=== PATIENT | female | born 1990 | race Caucasian/White ===

== ENCOUNTER → 2019-06-22 | Outpatient (CLI) | payer OTHER ==
--- NOTE | 2019-06-22 14:00 | Diagnostic Imaging Report ---
INDICATION: survey. TECHNIQUE: Multiple real-time grayscale images were obtained over the gravid uterus. COMPARISON: None FINDINGS: There is a single live fetus in a cephalic presentation. heart rate was recorded at 149 bpm. Placenta is anterior. Amniotic fluid volume is normal. kidneys, bladder and stomach are unremarkable. brain is unremarkable. There is a four-chamber heart. There is a three-vessel cord with normal insertion. spine is unremarkable. Cervical length is 3.2 cm. Biometrical measurements are as follows: Biparietal 6.62 cm, age 26 weeks 5 days. Head circumference 25.30 cm, age 27 weeks 4 days. Abdominal circumference 22.24 cm, age 26 weeks 5 days. Femur length 4.92 cm, age 26 weeks 4 days. Sonographic estimate age: 27 weeks 0 days. Sonographic estimated date of delivery: 09/21/2019. Estimated Weight: 973 gm (+/- 142 gm). LMP percentile: 38%. heart rate: 149 beats per minute. number: 1 of 1. IMPRESSION: Single live IUP 27 weeks 0 days gestational age. The estimated date of confinement sonographically is 09/21/2019. Dictated by: Dictated on workstation # [id number]
== END ==
LOC: RAD 10:01
PROVIDERS: ATTEND Obstetrics & Gynecology
DX: Z36.9 Encounter for antenatal screening, unspecified (principal); Z3A.27 27 weeks gestation of pregnancy
CPT/HCPCS: 76805

== ENCOUNTER 2019-09-18 18:03 | Inpatient (IN) | payer OTHER ==
[2019-09-18] VITALS (21 sets, daily range): BP systolic 110–129; BP diastolic 63–84
[~2019-09-18] VITALS: Ht 157.5 cm; Wt 72.8 kg
--- NOTE | 2019-09-18 18:10 | NUR ---
VALENTINE CASSIDY presented to unit via ambulatory from ED, accompanied by significant other , with c/o LEAKING FLUID. VALENTINE CASSIDY weighed, gowned, voided, and to bed. EFHM and TOCO applied, VS taken. VALENTINE CASSIDY oriented to bed controls, call light, TV, heat, and A/C controls.
--- NOTE | 2019-09-18 18:25 | NUR ---
Placed on monitor - states has been leaking mucous and clear fluid since 1700. Denies contractions. No initiate fluid seen with visual exam and coughing. Amnio test negative. Continued to observe and saw fluid expelled with cough from vaginal area. 1.5cms, 80% -2. 1851 Dr Pardo notified of admission - exam and gross leaking of fluid. Irregular and mild contractions - pt was not aware of them. Will admit for augmentation of labor.
[2019-09-18 19:12] LABS: BASOPHILS % (AUTO) 0 % (0-10); EOSINOPHILS % (AUTO) 0 % (0-10); HEMATOCRIT 34 % (35-52); HEMOGLOBIN 11.7 G/DL (11.5-16.0); LYMPHOCYTES # (AUTO) 2.3 X 10^3 (1.0-4.0); LYMPHOCYTES % (AUTO) 22 % (12-44); MEAN CORPUSCULAR HEMOGLOBIN 30 PG (25-34); MEAN CORPUSCULAR HGB CONC 34 G/DL (32-36); MEAN CORPUSCULAR VOLUME 86 FL (80-99); MEAN PLATELET VOLUME 10.1 FL (7.4-10.4); MONOCYTES # (AUTO) 0.7 X 10^3 (0.0-1.0); MONOCYTES % (AUTO) 6 % (0-12); NEUTROPHILS # (AUTO) 7.6 X 10^3 (1.8-7.8); NEUTROPHILS % (AUTO) 72 % (42-75); PLATELET COUNT 234 10^3/uL (130-400); RED CELL DISTRIBUTION WIDTH 12.6 % (10.0-14.5); WHITE BLOOD COUNT 10.6 10^3/uL (4.3-11.0)
[2019-09-18] MEDS ORDERED: D5 LR IV SOLUTION 1,000 ML IV ONE (19:12)
[2019-09-18] MEDS ORDERED: OXYTOCIN PRE-MIX DRIP 500 ML IV SCH (19:13)
--- NOTE | 2019-09-18 19:41 | History & Physical-OB ---
MARSHALL HUNT,MED STUDENT 09/18/19 1940: OB - Chief Complaint & HPI Date/Time Date of Admission: Date of Admission: Date seen by a Provider: Sep 18, 2019 Time Seen by a Provider: 19:22 Chief Complaint/History OB-Reason for Admission/Chief: Onset of Labor Hx : 1 Hx Para: 0 Expected Date of Delivery: Sep 23, 2019 Gestational Age in Weeks: 39 Gestational Age in Days: 2 Admission Nurse Assessment Rev: Yes Allergies and Home Medications Allergies Coded Allergies: No Known Drug Allergies (Unverified , 09/18/19) Patient Home Medication List Home Medication List Reviewed: Yes OB - History Hx of Present Care: Yes Ultrasounds: Normal mid trimester US Obstetrical Complications: None Medical Complications: None Patient Past Medical History N/A Immunizations Rubella: immune RPR/VDRL: Negative GBS Status: Negative OB - Admission Exam Physical Exam HEENT: NCAT Heart: Rhythm Normal Lungs: Clear Abdomen: Gravid Extremities: Normal Reflexes: Normal Heart Rate: 140's Accelerations: Accelerations Present Decelerations: No Decelerations Short Term Variability: Present Prison Variability: Average (6-25) Labs Laboratory Tests Test 09/18/19 18:55 Range/Units White Blood Count 10.6 4.3-11.0 10^3/uL Red Blood Count 3.95 L 4.35-5.85 10^6/uL Hemoglobin 11.7 11.5-16.0 G/DL Hematocrit 34 L 35-52 % Mean Corpuscular Volume 86 80-99 FL Mean Corpuscular Hemoglobin 30 25-34 PG Mean Corpuscular Hemoglobin Concent 34 32-36 G/DL Red Cell Distribution Width 12.6 10.0-14.5 % Platelet Count 234 130-400 10^3/uL Mean Platelet Volume 10.1 7.4-10.4 FL Neutrophils (%) (Auto) 72 42-75 % Lymphocytes (%) (Auto) 22 12-44 % Monocytes (%) (Auto) 6 0-12 % Eosinophils (%) (Auto) 0 0-10 % Basophils (%) (Auto) 0 0-10 % Neutrophils # (Auto) 7.6 1.8-7.8 X 10^3 Lymphocytes # (Auto) 2.3 1.0-4.0 X 10^3 Monocytes # (Auto) 0.7 0.0-1.0 X 10^3 Eosinophils # (Auto) 0.0 0.0-0.3 10^3/uL Basophils # (Auto) 0.0 0.0-0.1 10^3/uL OB - Assessment/Plan/Diagnosis Assessment Assessment: active labor Admission Dx 29 yo at 39 weeks 2 days gestation Active Labor Admission Status: Inpatient Order (span 2 midnights) Plan Plan: Expectant Management SADAF GLASGOW DO 09/18/192127: Allergies and Home Medications Allergies Coded Allergies: No Known Drug Allergies (Unverified , 09/18/19) OB - Assessment/Plan/Diagnosis Assessment Assessment: rupture of membranes Admission Dx 29 yo @ 38 weeks SROM Admission Status: Inpatient Order (span 2 midnights) Reason for Inpatient Admission: 38 week SROM Plan Plan: Other (Pitocin augmentation started due to dysfunctional contraction pattern at admission.) MARSHALL HUNT,MED STUDENT Sep 18, 2019 19:40 SADAF GLASGOW DO Sep 18, 2019 21:28
[2019-09-18] MEDS: D5 LR IV SOLUTION 1,000 ML IV SCH (19:53)
--- NOTE | 2019-09-18 21:27 | NUR ---
Dr Pardo called. Update given. New orders for epidural when pt desires. Will continue to monitor.
[2019-09-18] MEDS ORDERED: PREN1TAB19 PO (21:39)
--- OUTSIDE RECORDS SUMMARY | 2019-09-18 22:16 | XMS REPORT | Continuity of Care Document ---
Author Organization Unknown Address Unknown Phone Unavailable Allergies Active Description Code Type Severity Reaction Onset Reported/Identified Relationship to Patient Clinical Status Yes No Known Drug Allergies [id number] Drug Allergy Unknown N/A 09/18/2019 Medications There is no data. Problems Date Dx Coded Attending Type Code Diagnosis Diagnosed By 06/23/2019 Ot Z36.9 ENCO UNTER FOR SCREENING, UNSPE 06/23/2019 Ot Z3A.27 27 WEEKS GESTATION OF 06/30/2019 Ot Z36.9 ENCO UNTER FOR SCREENING, UNSPE 06/30/2019 Ot Z3A.27 27 WEEKS GESTATION OF 06/30/2019 Ot Z36.9 ENCO UNTER FOR SCREENING, UNSPE 06/30/2019 Ot Z3A.27 27 WEEKS GESTATION OF 06/30/2019 Ot Z36.9 ENCO UNTER FOR SCREENING, UNSPE 06/30/2019 Ot Z3A.27 27 WEEKS GESTATION OF Procedures There is no data. Results Test Result Range Complete blood count (CBC) with automate d white blood cell (WBC) differential - 09/18/19 18:55 Blood leukocytes automated count (number/volume) 10.6 10*3/uL 4.3-11.0 Blood erythrocytes automated count (number/volume) 3.95 10*6/uL 4.35-5.85 Venous blood hemoglobin measurement (mass/volume) 11.7 g/dL 11.5-16.0 Blood hematocrit (volume fraction) 34 % 35-52 Automated erythrocyte mean corpuscular volume 86 [ foz_us] 80-99 Automated erythrocyte mean corpuscular h emoglobin (mass per erythrocyte) 30 pg 25-34 Automated erythrocyte mean corpuscular h emoglobin concentration measurement (mass/volume) 34 g/dL 32-36 Automated erythrocyte distribution width ratio 12. 6 % 10.0- 14.5 Automated blood platelet count (count/volume) 234 10*3/uL 130-400 Automated blood platelet mean volume measurement 10.1 [foz_us] 7.4-10.4 Automated blood neutrophils/100 leukocytes 72 % 42-75 Automated blood lymphocytes/100 leukocytes 22 % 12-44 Blood monocytes/100 leukocytes 6 % 0-12 Automated blood eosinophils/100 leukocytes 0 % 0-10 Automated blood basophils/100 leukocytes 0 % 0-10 Blood neutrophils automated count (number/volume) 7.6 10*3 1.8-7.8 Blood lymphocytes automated count (number/volume) 2.3 10*3 1.0-4.0 Blood monocytes automated count (number/volume) 0. 7 10*3 0.0-1.0 Automated eosinophil count 0.0 10*3/uL 0 .0-0.3 Automated blood basophil count (count/volume) 0.0 10*3/uL 0.0-0.1 Blood type T Indirect antibody screen [facility] - 09/18/19 18:55 WRISTBAND NUMBER [id number] NRG ABO+Rh group AP NRG Blood group antibody screen NEGATIVE NR G Encounters ACCT No. Visit Date/Time Discharge Status Pt. Type Provider Facility Loc./Unit Complaint [id number] 09/23/2019 19:00:00 P EN Preadmit SADAF GLASGOW DO POST DATES [id number] 09/18/2019 20:08:[address] Inpatient SADAF GLASGOW DO [facility] LD LABOR [id number] 06/22/2019 10:01:00 Document Registration
[2019-09-18] MEDS ORDERED: fentaNYL 2 mcg/ml BUPIVA 0.125 100 ML ONE (23:14)
[2019-09-18] MEDS ORDERED: fentaNYL INJECTION 100 MCG/2 ML AMP ONE (23:39)
[2019-09-19] VITALS (37 sets, daily range): BP systolic 93–151; BP diastolic 50–72
[2019-09-19] MEDS ORDERED: LACTATED RINGERS 1,000 ML IV ONE ×2 (00:11)
[2019-09-19] MEDS ORDERED: BUPIVACAINE 0.25% 30 ML (SENSORCAINE) VIAL ONE (00:12)
[2019-09-19] MEDS ORDERED: LIDOCAINE PF 2% 5 ML (XYLOCAINE) VIAL ONE (00:12)
[2019-09-19] MEDS ORDERED: NALOXONE 0.4 MG/ML 1 ML (NARCAN) VIAL IV PRN (00:15)
[2019-09-19] MEDS ORDERED: ONDANSETRON 4 MG/2 ML (SDV) Z0FRAN IV PRN (00:15)
[2019-09-19] MEDS ORDERED: EPIDURAL (fentaNYL 2 MCG/ML BUPIVA 0.125%)100 ML BAG EPI PRN (00:15)
[2019-09-19] MEDS: D5 LR IV SOLUTION 1,000 ML IV SCH (03:16)
[2019-09-19] MEDS ORDERED: LIDOCAINE 1% INJ 20 ML 20 ML VIAL ONE (05:12)
--- NOTE | 2019-09-19 07:00 | NUR ---
ff u/1. moderate rubra. pt denies needs. skin to skin with mom. bonding well. report given to chicho braga.
[2019-09-19] MEDS ORDERED: WITCH HAZEL(TUCKS) 40 EA JAR TOP PRN (07:15)
[2019-09-19] MEDS ORDERED: OXYTOCIN PRE-MIX DRIP 500 ML IV SCH (07:15)
[2019-09-19] MEDS ORDERED: DIBUCAINE (NUPERCAINAL) 1% OINT 30 GM TOP PRN (07:15)
[2019-09-19] MEDS ORDERED: HYDROcodone/APAP 5 MG/325 MG (LORTAB) TAB PO PRN (07:15)
[2019-09-19] MEDS ORDERED: BENZOCAINE/MENTHOL (DERMOPLAST) 60 ML CAN TP PRN (07:15)
[2019-09-19] MEDS ORDERED: OXYTOCIN PRE-MIX DRIP 500 ML IV ONE (07:15)
[2019-09-19] MEDS ORDERED: MEASLES,MUMPS,RUBELLA 1 EA INJ SQ ONE (07:15)
[2019-09-19] MEDS ORDERED: TETANUS,DIPTH,PERTUSS P/F (BOOSTRIX) 0.5 ML VIAL IM ONE (07:15)
--- NOTE | 2019-09-19 07:15 | NUR ---
FFU/-1, LT VAG FLOW, NO CLOTS.
--- NOTE | 2019-09-19 07:30 | NUR ---
FFU/-1, LT RUBRA LOCHIA, NO CLOTS.
--- NOTE | 2019-09-19 07:44 | OB Labor & Delivery Record ---
L&D History Date of Service Date of Service: Sep 19, 2019 History Expected Date of Delivery: Sep 23, 2019 Gestational Age in Weeks: 39 Hx : 1 Hx Para: 0 Complications Events: Routine care Operative Indications (Cesarea: N/A-Vaginal Delivery Intrapartal Events: None L&D Stage1 Stage One Onset of Labor - Date: Sep 18, 2019 Monitors and Tracing Monitor Mode: External Heart Rate: 120 Monitor Accelerations: Uniform Monitor Decelerations: None Station: 0 Tableau Analyst Variability: Average (6-10) Short Term Variability: Present Presentation: Vertex Vital Signs VS - Last 72 Hours, by Label 09/18/19 09/18/19 09/18/19 09/18/19 18:25 19:20 19:35 19:50 Temp 37.0 Pulse 90 85 86 72 Resp 16 18 18 18 B/P (MAP) 129/70 (89) 113/77 (89) 117/81 (93) 110/74 (86) O2 Delivery Room Air Room Air Room Air Room Air 09/18/19 09/18/19 09/18/19 09/18/19 20:00 20:05 20:25 20:35 Temp 37.0 Pulse 90 70 86 78 Resp 18 18 18 18 B/P (MAP) 112/77 (89) 119/63 (81) 124/70 (88) O2 Delivery Room Air Room Air Room Air Room Air 09/18/19 09/18/19 09/18/19 09/18/19 20:50 21:05 21:20 21:35 Pulse 86 81 73 69 Resp 18 18 18 18 B/P (MAP) 127/76 (93) 122/75 (91) 113/75 (88) 112/74 (87) O2 Delivery Room Air Room Air Room Air Room Air 09/18/19 09/18/19 09/18/19 09/18/19 21:50 22:05 22:20 22:35 Temp 35.9 Pulse 62 63 67 69 Resp 18 18 18 18 B/P (MAP) 111/73 (86) 111/78 (89) 113/75 (88) 128/74 (92) O2 Delivery Room Air Room Air Room Air Room Air 09/18/19 09/18/19 09/18/19 09/18/19 22:50 23:05 23:20 23:35 Pulse 88 67 74 71 Resp 18 18 18 18 B/P (MAP) 114/71 (85) 124/84 (97) 120/77 (91) 113/64 (80) O2 Delivery Room Air Room Air Room Air Room Air 09/18/19 09/19/19 09/19/19 09/19/19 23:55 00:00 00:05 00:05 Temp 36.0 Pulse 71 72 72 Resp 18 18 18 B/P (MAP) 113/64 (80) 116/58 (77) 118/68 (85) Pulse Ox 99 97 97 O2 Delivery Room Air Room Air Room Air 09/19/19 09/19/19 09/19/19 09/19/19 00:10 00:15 00:20 00:25 Pulse 65 64 63 57 Resp 18 18 18 18 B/P (MAP) 109/65 (80) 110/62 (78) 104/60 (75) 111/59 (76) Pulse Ox 98 98 97 98 O2 Delivery Room Air Room Air Room Air Room Air 09/19/19 09/19/19 09/19/19 09/19/19 00:30 00:45 01:00 01:15 Pulse 76 65 62 65 Resp 18 18 18 18 B/P (MAP) 104/63 (77) 108/62 (77) 107/53 (71) 101/60 (74) Pulse Ox 98 O2 Delivery Room Air Room Air Room Air Room Air 09/19/19 09/19/19 09/19/19 09/19/19 01:30 01:45 02:00 02:15 Pulse 65 58 64 63 Resp 18 18 18 18 B/P (MAP) 99/59 (72) 101/59 (73) 106/61 (76) 100/64 (76) O2 Delivery Room Air Room Air Room Air Room Air 09/19/19 09/19/19 09/19/19 09/19/19 02:30 02:45 03:00 03:15 Temp 36.2 Pulse 64 63 72 66 Resp 18 18 18 18 B/P (MAP) 104/64 (77) 99/66 (77) 126/65 (85) 104/67 (79) O2 Delivery Room Air Room Air Room Air Room Air 09/19/19 09/19/19 09/19/19 09/19/19 03:30 03:45 04:00 04:15 Pulse 66 63 68 69 Resp 18 18 18 18 B/P (MAP) 109/67 (81) 106/66 (79) 105/62 (76) 107/68 (81) O2 Delivery Room Air Room Air Room Air Room Air 09/19/19 09/19/19 09/19/19 09/19/19 04:30 04:45 05:00 05:15 Temp 36.4 Pulse 74 86 89 Resp 18 18 18 18 B/P (MAP) 99/62 (74) 115/70 (85) 111/51 (71) O2 Delivery Room Air Room Air Room Air Room Air 09/19/19 09/19/19 09/19/19 09/19/19 05:30 05:45 06:00 06:15 Pulse 73 70 Resp 18 18 18 18 B/P (MAP) 106/64 (78) 118/58 (78) O2 Delivery Room Air Room Air Room Air Room Air 09/19/19 09/19/19 06:34 06:50 Pulse 86 Resp 18 18 B/P (MAP) 151/72 (98) O2 Delivery Room Air Room Air Rupture of Membranes Spontaneous Ruture of Membrane: Yes Amniotic Membrane Rupture Time: 1700 Vaginal Bleeding Description: Normal Show Induction/Anesthesia Epidural Cath Placement - Time: 3 Progress/Notes Pitocin augmentation started to maximum dosage of 8 mlunits. Patient progressed with epidural analgesia to complete and +2. L&D Stage2 Stage Two Stage II Date: Sep 19, 2019 Monitors and Tracing Monitor Mode: External Heart Rate: 120 Monitor Accelerations: Uniform Monitor Decelerations: Early Tableau Analyst Variability: Average (6-10) Short Term Variability: Present Position: Left Occiput Anterior Presentation: Vertex Cord Descript/Complications Cord Vessel Description: 3 Vessels Delivery Type Delivery Method: Spontaneous Vaginal Anterior Shoulder: Left Episiotomy/Perineal Laceration Laceraction(s)/Extensions: Yes Episiotomy Description: 2nd degree Degree (describe repair) 2nd degree perineal laceration repaired with 3-0 repead in usual fashion Condition of Infant Delivery Delivery Date & Time: 09/19/19 at 0634 1 minute Comment: 9 5 minute Comment: 9 Notes living viable male infant weighing 7 lbs Condition of Infant Condition of : Living Resuscitation Resuscitation: N/A - Spontaneous Resp L&D Stage3 Stage Three Stage III Date: Sep 19, 2019 Pictocin Pitocin Administration mu/min: 8 Pitocin ml/hr: 8 Pitocin Administration Comment: 30 mlunits wide open at delivery of placenta Placenta Delivery Placenta Delivery: Spontaneous Delivery Summary Summary Estimated blood loss (mL): 300 Attending at delivery: Dong Pardo DO Condition of Delivery Examined: Cervix Examined, Uterus Explored Post Hemorrhage: No Condition of Mother stable Condition of Infant (s) stable MARSHALL HUNT,MED STUDENT Sep 19, 2019 07:44
[2019-09-19] MEDS: FERROUS SULF 325 MG (IRON) TAB PO SCH (09:39)
[2019-09-19] MEDS: IBUPROFEN 600 MG (MOTRIN) TAB PO SCH ×3 (09:40→21:57)
[2019-09-19] MEDS: DOCUSATE SODIUM 100 MG (COLACE) CAP PO SCH ×2 (09:40→23:02)
--- NOTE | 2019-09-19 12:25 | Anesthesia-Regional Post-Op ---
Regional Patient Condition Mental Status: Alert, Oriented x3 Circulation: Same as Pre-Op Headache: Absent Sensation: Full Recovery Motor Block: Absent Post Op Complications Complications None Follow Up Care/Instructions Patient Instructions None needed. Anesthesia/Patient Condition Patient is doing well, no complaints, stable vital signs, no apparent adverse anesthesia problems. No complications reported per nursing. KANDICE VILLARREAL CRNA Sep 19, 2019 12:25
--- NOTE | 2019-09-19 12:40 | NUR ---
PT SITTING UP IN BED, CALLING DIETARY. PT INFORMED THAT HER POST ROOM WAS JUST CLEANED AND SET BACK UP, READY WHENEVER THEY ARE. CART PROVIDED.
[2019-09-19] MEDS ORDERED: CATHETER FLUSH 10 ML SYR IV SCH (14:00)
--- NOTE | 2019-09-19 18:20 | NUR ---
PT SITTING UP IN BED, DINNER AT THE BEDSIDE, NO NEEDS VOICED AT THIS TIME. CALL LIGHT WITHIN REACH. S/O @ THE BEDSIDE.
--- NOTE | 2019-09-19 20:10 | NUR ---
Pt sitting up in bed holding nb, plan of care discussed. All questions answered. Assessment completed. Pt denies any concerns at this time. Will continue to monitor.
[2019-09-20 02:43] VITALS: BP 97/60
[2019-09-20] MEDS: IBUPROFEN 600 MG (MOTRIN) TAB PO SCH ×3 (03:43→15:06)
[2019-09-20 03:56] LABS: BASOPHILS % (AUTO) 0 % (0-10); EOSINOPHILS # (AUTO) 0.1 10^3/uL (0.0-0.3); EOSINOPHILS % (AUTO) 1 % (0-10); HEMATOCRIT 25 % (35-52); HEMOGLOBIN 8.5 G/DL (11.5-16.0); LYMPHOCYTES # (AUTO) 2.7 X 10^3 (1.0-4.0); LYMPHOCYTES % (AUTO) 21 % (12-44); MEAN CORPUSCULAR HEMOGLOBIN 30 PG (25-34); MEAN CORPUSCULAR HGB CONC 34 G/DL (32-36); MEAN CORPUSCULAR VOLUME 88 FL (80-99); MEAN PLATELET VOLUME 9.9 FL (7.4-10.4); MONOCYTES # (AUTO) 0.8 X 10^3 (0.0-1.0); MONOCYTES % (AUTO) 6 % (0-12); NEUTROPHILS # (AUTO) 9.4 X 10^3 (1.8-7.8); NEUTROPHILS % (AUTO) 72 % (42-75); PLATELET COUNT 177 10^3/uL (130-400); RED CELL DISTRIBUTION WIDTH 12.5 % (10.0-14.5)
[2019-09-20] MEDS ORDERED: PRENATAL VITAMIN 1 EA TAB PO SCH (07:00)
--- NOTE | 2019-09-20 08:00 | NUR ---
TOWELS AND WASH CLOTHS PROVIDED FOR SHOWERS PER PT'S REQUEST. PT SITTING UP IN BED, BREAKFAST @ THE BEDSIDE. POC REVIEWED WITH PT, PT VERBALIZES UNDERSTANDING AND DENIES ANY FURTHER NEEDS OR QUESTIONS AT THIS TIME. CALL LIGHT WITHIN REACH.
--- NOTE | 2019-09-20 08:53 | NUR ---
PT IS RUBELLA IMMUNE AND HAS ALREADY RECEIVED HER TDAP VACCINE WITH THIS - MEDS NON ADMIN.
--- NOTE | 2019-09-20 09:00 | Postpartum Progress Note ---
Note Note Day # 1 Subjective: Patient is without complaints. Ambulating, voiding. Tolerating a regular diet without nausea or vomiting. Normal lochia. Pain is well controlled with oral pain medications. Objective: Physical Exam: General - Alert and oriented, no apparent distress Abdomen - Soft, appropriately tender to palpation, non-distended, fundus firm at umbilicus Extremities - no edema, negative Ziyad's bilaterally Assessment: Post- day # 1, spontaneous vaginal delivery. Acute blood loss anemia Plan: Routine care. Encourage breast feeding. Encourage ambulation. Ferrous sulfate supplementation. Continue vitamin while Plan for discharge this afternoon Vitals - Labs Vital Signs - I&O Vital Signs Date Time Temp Pulse Resp B/P (MAP) Pulse Ox O2 Delivery O2 Flow Rate FiO2 09/20/19 02:43 36.5 67 18 97/60 (72) 97 Room Air 09/19/19 20:22 36.9 86 18 100/59 (73) 97 Room Air 09/19/19 16:04 37.0 92 18 114/66 (82) 97 Room Air 09/19/19 13:05 36.7 103 18 131/66 (87) 98 Room Air 09/19/19 09:17 71 18 96/52 (67) Room Air 09/19/19 09:03 96 18 99/61 (74) Room Air I & O 09/20/19 07:00 Intake Total 500 ml Balance 500 ml Labs Laboratory Tests 09/20/19 03:43: White Blood Count 13.0H, Red Blood Count 2.83L, Hemoglobin 8.5#L, Hematocrit 25L , Mean Corpuscular Volume 88, Mean Corpuscular Hemoglobin 30, Mean Corpuscular Hemoglobin Concent 34, Red Cell Distribution Width 12.5, Platelet Count 177, Mean Platelet Volume 9.9, Neutrophils (%) (Auto) 72, Lymphocytes (%) (Auto) 21, Monocytes (%) (Auto) 6, Eosinophils (%) (Auto) 1, Basophils (%) (Auto) 0, Neutrophils # (Auto) 9.4H, Lymphocytes # (Auto) 2.7, Monocytes # (Auto) 0.8, Eosinophils # (Auto) 0.1, Basophils # (Auto) 0.0 MARSHALL HUNT MED STUDENT Sep 20, 2019 09:00
[2019-09-20 10:02] VITALS: BP 92/68
[2019-09-20] MEDS: DOCUSATE SODIUM 100 MG (COLACE) CAP PO SCH (10:04)
[2019-09-20] MEDS: FERROUS SULF 325 MG (IRON) TAB PO SCH (10:04)
[2019-09-20] MEDS ORDERED: DCS100C PO (11:29)
[2019-09-20] MEDS ORDERED: BENZ78AE2 TP (11:29)
[2019-09-20] MEDS ORDERED: DIBU30OI TOP (11:29)
[2019-09-20] MEDS ORDERED: IBUP-844 PO (11:29)
--- NOTE | 2019-09-20 11:30 | Discharge Inst-Women's Service ---
Discharge Inst-Women's Serv Depart Medication/Instructions New, Converted or Re-Newed RX: RX on Chart Final Diagnosis PPD 1 NVD Problems Reviewed?: Yes Consults/Follow Up Additional Follow Up: Yes Orders/Referrals Dr. Glasgow in 6 weeks Activity Activity: Activity as Tolerated Driving Instructions: No Driving for 1 Week NO SMOKING: NO SMOKING Nothing Inside Vagina: No Douching, No [place], No Tampons Diet Discharge Diet: No Restrictions Symptoms to Report to : Bleeding Excessive, Pain Increased, Fever Over 101 Degrees F, Vaginal Bleeding Increase, Questions/Concerns For Any Problems or Questions: Contact Your Physician SADAF GLASGOW DO Sep 20, 2019 11:30
[2019-09-20 15:07] VITALS: BP 124/69
--- NOTE | 2019-09-20 15:14 | NUR ---
VS OBTAINED. MOTRIN GIVEN PO; SEE EMAR FOR FURTHER. DISCHARGE PAPERS PROVIDED AND REVIEWED WITH PT, PT VERBALIZES UNDERSTANDING. QUESTIONS ANSWERED. PAPER SIGNED.
--- NOTE | 2019-09-20 15:29 | NUR ---
RXS CALLED INTO [facility], SPOKE WITH
--- NOTE | 2019-09-20 15:31 | NUR ---
PT DISCHARGED FROM -311 TO PERSONAL AUTO VIA AMBULATORY IN STABLE CONDITION ACC BY S/O, RILEY AND [place] ARIAS RN.
== END 2019-09-20 15:31 | disposition home or self-care (01) | DRG 806 ==
LOC: WSo 18:03 → LDRP 18:03 → WSo 20:08 → LDRP 20:08
PROVIDERS: ADMIT Obstetrics & Gynecology; ATTEND Obstetrics & Gynecology
PROC: 10E0XZZ Delivery of Products of Conception, External Approach (ICD-10-PCS; principal; 2019-09-19)
PROC: 0KQM0ZZ Repair Perineum Muscle, Open Approach (ICD-10-PCS; 2019-09-19)
DX: O70.1 Second degree perineal laceration during delivery (principal); D62 Acute posthemorrhagic anemia; Z37.0 Single live birth; O90.81 Anemia of the puerperium; Z3A.39 39 weeks gestation of pregnancy
CPT/HCPCS: 36415; 85025; 86850; 86900; 86901

== ENCOUNTER → 2022-01-11 | Outpatient (CLI) | payer OTHER ==
[~2022-01-11] MED LIST: BENZ78AE5 TP; DIBU30OI TOP; DOCU-239 PO; IBUP-844 PO; PREN1TAB19 PO
--- NOTE | 2022-01-11 16:32 | Diagnostic Imaging Report ---
INDICATION: anatomy survey TECHNIQUE: Multiple real-time grayscale images were obtained over the gravid uterus. COMPARISON: None FINDINGS: Cervix measures 4.9 cm in length. The fetus is in breech presentation. Placenta is posterior position without previa. Maternal adnexa are suboptimally evaluated due to advanced gestational age. The amount of amniotic fluid appears visually appropriate. EAST[place] is normal at 11.34 cm. The following anatomy is visualized and normal: Four-chamber heart, spine, stomach, lips/nose, cerebral ventricles, cerebellum, cisterna magna, umbilical cord insertion, left ventricular outflow tract, kidneys, profile, and right ventricular outflow tract. Biometrical measurements are as follows: Biparietal 4.45 cm, age 19 weeks 4 days. Head circumference 16.73 cm, age 19 weeks 3 days. Abdominal circumference 13.68 cm, age 19 weeks 1 days. Femur length 3.08 cm, age 19 weeks 4 days. Sonographic estimate age: 19 weeks 3 days. Sonographic estimated date of delivery: 06/04/2022. Estimated Weight: 287 gm (+/- 42 gm). LMP percentile: 32%. heart rate: 146 beats per minute. number: 1 of 1. IMPRESSION: 1. Single live intrauterine has normal anatomy survey. 2. Dictated by: Dictated on workstation # [id number]
== END ==
LOC: RAD 09:58
PROVIDERS: ATTEND Nurse Practitioner Women's Health
DX: Z34.02 Encounter for supervision of normal first pregnancy, second trimester (principal); Z3A.19 19 weeks gestation of pregnancy
CPT/HCPCS: 76805

== ENCOUNTER 2022-06-04 06:08 | Inpatient (IN) | payer OTHER ==
[~2022-06-04] VITALS: Ht 160 cm; Wt 72.6 kg
[2022-06-04] VITALS (53 sets, daily range): BP systolic 91–131; BP diastolic 51–82
--- NOTE | 2022-06-04 06:30 | History & Physical-OB/GYN ---
SRAVAN REYES 06/04/22 0630: OB - Chief Complaint & HPI Date/Time Date of Admission: Date of Admission: Jun 04, 2022 at 06:08 Date seen by a Provider: Jun 04, 2022 Time Seen by a Provider: 06:35 Chief Complaint/History OB-Reason for Admission/Chief: Induction of Labor Hx : 2 Hx Para: 1 Expected Date of Delivery: Jun 03, 2022 Gestational Age in Weeks: 40 Gestational Age in Days: 1 Indication for induction: other (elective) History of Labs A+ Antibody Neg VDRL NR HIV NR HBsAg NR G/C Neg RI GBS Neg Allergies and Home Medications Allergies Coded Allergies: No Known Drug Allergies (Unverified , 09/18/19) Patient Home Medication List Home Medication List Reviewed: Yes Vit/Iron Fumarate/FA ( Vitamins Tablet) 1 Each Tablet, 1 EACH PO, (Reported) Entered as Reported by: SUGAR MEADE on 09/18/192138 Last Action: Reviewed Discontinued Medications Benzocaine/Menthol (Dermoplast Pain Relieving [place]) 78 Gm Aerosol, 56 ML TP UD PRN for PAIN- SEE INSTRUCTIONS Discontinued Reason: No Longer Taking Prescribed by: SADAF GLASGOW on 09/20/191128 Last Action: Discontinued Dibucaine (Dibucaine) 30 Gm Oint, 0 GM TOP UD PRN for PAIN- SEE INSTRUCTIONS Discontinued Reason: No Longer Taking Prescribed by: SADAF GLASGOW on 09/20/191128 Last Action: Discontinued Docusate Sodium (Dok) 100 Mg Capsule, 100 MG PO BID PRN for CONSTIPATION-1ST LINE Discontinued Reason: No Longer Taking Prescribed by: SADAF GLASGOW on 09/20/191128 Last Action: Discontinued Ibuprofen (Ibu) 600 Mg Tablet, 600 MG PO Q6HR Discontinued Reason: No Longer Taking Prescribed by: SADAF GLASGOW on 09/20/191128 Last Action: Discontinued OB - History Hx of Present Care: Yes Ultrasounds: Normal mid trimester US Obstetrical Complications: None Medical Complications: None Information Induced Hypertension: No Maternal Gestational Diabetes: No Hemorrhage: No Obstetrical History Hx : 2 Hx Para: 1 Hx # Term Pregnancies: 1 Hx # Pregnancies: 0 Number of Living Children: 1 Hx Termination: No Hx Total # of Abortions (Spona: 0 Hx Multiple Gestation: No Hx Ectopic : No Hx Stillbirth: No Hx Complication: No Hx Induced Hypertens: No Hx Maternal Gestational Diabet: No Hx Hemorrhage: No Delivery History Hx Dystocia: No Hx Forceps Assisted Delivery: No Hx Vacuum Extraction Assisted: No Hx Placenta Abnormality: No Hx Distress: No Hx Large For Gestational Age I: No Hx Small for Gestational Age I: No Hx Section: No Hx Vaginal Delivery Post C-Sec: No Hx Blood Disorders: No Adverse Rxn to Tranfusion: No Patient Past Medical History N/A Social History/Family History Alcohol Use: Denies Use Recreational Drug Use: No Smoking Cessation: Never smoker 2nd Hand Smoke Exposure: No Immunizations Rubella: immune RPR/VDRL: Negative GBS Status: Negative HBsAG: Negative OB - Admission Exam Physical Exam HEENT: PERRLA Heart: Rhythm Normal Lungs: Clear Abdomen: Gravid Extremities: Normal Reflexes: Normal Heart Rate: 120's Accelerations: Accelerations Present Decelerations: No Decelerations Short Term Variability: Present Shelter Variability: Average (6-25) Contractions on Admission: None OB - Assessment/Plan/Diagnosis Assessment Assessment: induction of labor Admission Dx at 40 weeks 1 day gestational age Elective IOL GBS Negative Otherwise uncomplicated Admission Status: Inpatient Order (span 2 midnights) Reason for Inpatient Admission: Elective IOL at 40 weeks 1 day Plan Plan: Induction SADAF GLASGOW DO 06/04/22 0817: Allergies and Home Medications Allergies Coded Allergies: No Known Drug Allergies (Unverified , 09/18/19) Patient Home Medication List Vit/Iron Fumarate/FA ( Vitamins Tablet) 1 Each Tablet, 1 EACH P O, (Reported) Entered as Reported by: SUGAR MEADE on 09/18/192138 Last Action: Reviewed Discontinued Medications Benzocaine/Menthol (Dermoplast Pain Relieving [place]) 78 Gm Aerosol, 56 ML TP UD PRN for PAIN- SEE INSTRUCTIONS Discontinued Reason: No Longer Taking Prescribed by: SADAF GLASGOW on 09/20/191128 Last Action: Discontinued Dibucaine (Dibucaine) 30 Gm Oint, 0 GM TOP UD PRN for PAIN- SEE INSTRUCTIONS Discontinued Reason: No Longer Taking Prescribed by: SADAF GLASGOW on 09/20/191128 Last Action: Discontinued Docusate Sodium (Dok) 100 Mg Capsule, 100 MG PO BID PRN for CONSTIPATION-1ST LINE Discontinued Reason: No Longer Taking Prescribed by: SADAF GLASGOW on 09/20/191128 Last Action: Discontinued Ibuprofen (Ibu) 600 Mg Tablet, 600 MG PO Q6HR Discontinued Reason: No Longer Taking Prescribed by: SADAF GLASGOW on 09/20/191128 Last Action: Discontinued Supervisory-Addendum Brief Verification & Attestation Participated in pt care: history Personally performed: exam Care discussed with: Medical Student Procedures: n/a Results interpretation: Verified all documentation Verification and Attestation of Medical Student E/M Service A medical student performed and documented this service in my presence. I reviewed and verified all information documented by the medical student and made modifications to such information, when appropriate. I personally performed the physical exam and medical decision making. Sadaf Glasgow, Jun 04, 2022,08:17 SRAVAN REYES Jun 04, 2022 06:30 SADAF GLASGOW DO Jun 04, 2022 08:17
[2022-06-04] MEDS ORDERED: LIDOCAINE 1% INJ 20 ML VIAL IJ PRN (06:45)
[2022-06-04 06:55] LABS: BASOPHILS # (AUTO) 0.1 10^3/uL (0.0-0.1); BASOPHILS % (AUTO) 1 % (0-10); EOSINOPHILS # (AUTO) 0.1 10^3/uL (0.0-0.3); EOSINOPHILS % (AUTO) 1 % (0-10); HEMATOCRIT 35 % (35-52); HEMOGLOBIN 12.2 g/dL (11.5-16.0); LYMPHOCYTES % (AUTO) 28 % (12-44); MEAN CORPUSCULAR HEMOGLOBIN 30 pg (25-34); MEAN CORPUSCULAR HGB CONC 35 g/dL (32-36); MEAN CORPUSCULAR VOLUME 86 fL (80-99); MONOCYTES # (AUTO) 0.6 10^3/uL (0.0-1.0); MONOCYTES % (AUTO) 5 % (0-12); NEUTROPHILS # (AUTO) 7.2 10^3/uL (1.8-7.8); NEUTROPHILS % (AUTO) 66 % (42-75); PLATELET COUNT 219 10^3/uL (130-400); WHITE BLOOD COUNT 11.1 10^3/uL (4.3-11.0)
[2022-06-04] MEDS: D5 LR IV SOLUTION 1,000 ML IV SCH ×2 (07:44→16:04)
[2022-06-04] MEDS ORDERED: OXYTOCIN PRE-MIX DRIP 500 ML IV ONE (08:28)
[2022-06-04] MEDS ORDERED: OXYTOCIN PRE-MIX DRIP 500 ML IV SCH (08:45)
[2022-06-04] MEDS ORDERED: fentaNYL 2 mcg/ml BUPIVA 0.125 100 ML ONE (13:41)
[2022-06-04] MEDS ORDERED: fentaNYL 2 mcg/ml BUPIVA 0.125 100 ML EPI SCH (14:00)
[2022-06-04] MEDS ORDERED: LACTATED RINGERS 1,000 ML IV SCH (14:00)
[2022-06-04] MEDS ORDERED: NALOXONE 0.4 MG/ML 1 ML (NARCAN) VIAL IV PRN ×3 (14:00→19:15)
[2022-06-04] MEDS ORDERED: CATHETER FLUSH 10 ML SYR IV SCH ×2 (14:00→22:00)
[2022-06-04] MEDS ORDERED: diphenhydrAMINE 50 MG/ML INJ (BENADRYL) IV PRN (14:00)
[2022-06-04] MEDS ORDERED: METOCLOPRAMIDE INJ 10 MG/2 ML (REGLAN) IV PRN (14:00)
[2022-06-04] MEDS ORDERED: ONDANSETRON 4 MG/2 ML (SDV) Z0FRAN IV PRN (14:00)
[2022-06-04] MEDS: OXYTOCIN PRE-MIX DRIP 500 ML IV SCH ×2 (19:02→19:33)
--- NOTE | 2022-06-04 19:13 | OB Labor & Delivery Record ---
L&D History Date of Service Date of Service: Jun 04, 2022 History Expected Date of Delivery: Jun 04, 2022 Gestational Age in Weeks: 40 Hx : 2 Hx Para: 1 Complications Events: Routine care Operative Indications (Cesarea: N/A-Vaginal Delivery Intrapartal Events: None L&D Stage1 Stage One Onset of Labor - Date: Jun 04, 2022 Monitors and Tracing Monitor Mode: External Heart Rate: 125 Monitor Accelerations: Uniform Monitor Decelerations: Variable Station: 0 Half-Way Variability: Average (6-10) Short Term Variability: Present Presentation: Vertex Vital Signs VS - Last 72 Hours, by Label 06/04/22 06/04/22 06/04/22 06/04/22 07:03 08:45 09:00 09:15 Temp 36.8 36.7 Pulse 83 80 75 83 Resp 18 18 18 18 B/P (MAP) 105/73 (84) 108/72 (84) 104/72 (83) Pulse Ox 99 O2 Delivery Room Air 06/04/22 06/04/22 06/04/22 06/04/22 09:30 09:45 10:00 10:15 Pulse 81 73 82 80 Resp 18 18 18 18 B/P (MAP) 102/71 (81) 106/74 (85) 109/64 (79) 104/70 (81) 06/04/22 06/04/22 06/04/22 06/04/22 10:30 10:45 11:00 11:45 Pulse 65 82 65 72 Resp 18 18 18 18 B/P (MAP) 120/73 (89) 108/66 (80) 110/68 (82) 106/64 (78) 06/04/22 06/04/22 06/04/22 06/04/22 12:00 12:15 12:30 12:45 Temp 36.3 Pulse 68 69 67 74 Resp 18 18 18 18 B/P (MAP) 99/66 (77) 100/66 (77) 108/72 (84) 114/63 (80) 06/04/22 06/04/22 06/04/22 06/04/22 13:00 13:20 13:35 13:50 Pulse 76 74 75 73 Resp 18 18 18 18 B/P (MAP) 116/78 (91) 104/57 (73) 109/69 (82) 126/82 (97) Pulse Ox 100 06/04/22 06/04/22 06/04/22 06/04/22 13:55 13:58 14:01 14:07 Temp 36.4 Pulse 71 76 82 88 Resp 18 18 18 18 B/P (MAP) 122/75 (91) 117/72 (87) 122/68 (86) 125/73 (90) Pulse Ox 99 99 98 97 06/04/22 06/04/22 06/04/22 06/04/22 14:10 14:23 14:29 14:33 Temp 36.3 Pulse 72 82 85 77 Resp 18 18 18 18 B/P (MAP) 122/69 (86) 118/61 (80) 118/67 (84) 108/62 (77) Pulse Ox 98 99 99 99 06/04/22 06/04/22 06/04/22 06/04/22 14:48 15:05 15:20 15:35 Pulse 93 97 85 65 Resp 18 18 18 18 B/P (MAP) 110/67 (81) 106/64 (78) 122/60 (80) 107/58 (74) Pulse Ox 99 98 99 06/04/22 06/04/22 06/04/22 06/04/22 15:50 16:35 16:50 17:05 Pulse 71 71 73 81 Resp 18 18 18 18 B/P (MAP) 122/59 (80) 92/51 (65) 91/56 (68) 91/59 (70) 06/04/22 06/04/22 06/04/22 17:20 17:35 17:50 Temp 36.5 Pulse 81 73 78 Resp 18 18 18 B/P (MAP) 106/61 (76) 105/65 (78) 108/65 (79) Rupture of Membranes Spontaneous Ruture of Membrane: No Amniotic Membrane Rupture Time: 0810 Amniotic Membrane Fluid Desc.: Clear Vaginal Bleeding Description: Normal Show Induction/Anesthesia Epidural Cath Placement - Time: 1347 Progress/Notes Patient admitted for IOL for post dates. AROM performed and Pitocin augmentation started. She progressed after epidural placed to complete and + 2 station L&D Stage2 Stage Two Stage II Date: Jun 04, 2022 Monitors and Tracing Monitor Mode: External Heart Rate: 125 Monitor Decelerations: Variable Half-Way Variability: Average (6-10) Position: Right Occiput Anterior Presentation: Vertex Signs of Distress by FHT Signs of Distress niuchal cord x 1 Cord Descript/Complications Cord Vessel Description: 3 Vessels Delivery Type Delivery Method: Spontaneous Vaginal Anterior Shoulder: Left Episiotomy/Perineal Laceration Episiotomy Description: Perineal Extension/lac, 1st degree Degree (describe repair) laceration repaired using 3-0 vicryl rapide in usual fashion Condition of Delivery 1 minute Comment: 8 5 minute Comment: 9 Notes live female infant weight 6lbs 8 oz Condition of Condition of Infant: Living Exam: No Observed Abnormalities Resuscitation Resuscitation: N/A - Spontaneous Resp L&D Stage3 Stage Three Stage III Date: Jun 04, 2022 Pictocin Pitocin Administration mu/min: 10 Pitocin ml/hr: 10 Pitocin Administration Comment: 30 mu wide open after delivery of placenta Placenta Delivery Placenta Delivery: Spontaneous Delivery Summary Summary Estimated blood loss (mL): 300 Attending at delivery: Sadaf Glasgow DO Condition of Delivery Examined: Cervix Examined, Uterus Explored Post Hemorrhage: No Condition of Mother stable Condition of Infant (s) Stable SADAF GLASGOW DO Jun 04, 2022 19:13
[2022-06-04] MEDS ORDERED: DIBUCAINE 1% OINTMENT 28 GM TUBE TOP PRN (19:15)
[2022-06-04] MEDS ORDERED: HYDROcodone/APAP 5 MG/325 MG (LORTAB) TAB PO PRN (19:15)
[2022-06-04] MEDS ORDERED: MEASLES,MUMPS,RUBELLA 1 EA INJ SQ ONE (19:15)
[2022-06-04] MEDS ORDERED: BENZOCAINE/MENTHOL (DERMOPLAST) 56 ML CAN TP PRN (19:15)
[2022-06-04] MEDS ORDERED: TETANUS,DIPTH,PERTUSS P/F (BOOSTRIX) 0.5 ML VIAL IM ONE (19:15)
[2022-06-04] MEDS: DOCUSATE SODIUM 100 MG (COLACE) CAP PO SCH (21:00)
[2022-06-04] MEDS: WITCH HAZEL(TUCKS) 40 EA JAR TOP PRN (21:14)
[2022-06-04] MEDS: IBUPROFEN 600 MG (MOTRIN) TAB PO SCH (21:14)
[2022-06-05 01:50] VITALS: BP 103/59
[2022-06-05] MEDS: IBUPROFEN 600 MG (MOTRIN) TAB PO SCH ×4 (03:36→19:59)
[2022-06-05 05:10] VITALS: BP 109/57
[2022-06-05 05:21] LABS: BASOPHILS % (AUTO) 0 % (0-10); EOSINOPHILS # (AUTO) 0.1 10^3/uL (0.0-0.3); EOSINOPHILS % (AUTO) 1 % (0-10); HEMATOCRIT 31 % (35-52); HEMOGLOBIN 10.8 g/dL (11.5-16.0); LYMPHOCYTES # (AUTO) 3.1 10^3/uL (1.0-4.0); LYMPHOCYTES % (AUTO) 24 % (12-44); MEAN CORPUSCULAR HEMOGLOBIN 30 pg (25-34); MEAN CORPUSCULAR HGB CONC 34 g/dL (32-36); MEAN CORPUSCULAR VOLUME 87 fL (80-99); MONOCYTES # (AUTO) 0.7 10^3/uL (0.0-1.0); MONOCYTES % (AUTO) 5 % (0-12); NEUTROPHILS % (AUTO) 69 % (42-75); PLATELET COUNT 211 10^3/uL (130-400)
--- NOTE | 2022-06-05 06:53 | Postpartum Progress Note ---
SRAVAN REYES 06/05/22 0653: Note Note Day # 1 Subjective: Patient is without complaints. Ambulating, voiding. Tolerating a regular diet without nausea or vomiting. Normal lochia. Pain is well controlled with oral pain medications. Bottle feeding. Objective: Patient is lying in bed at time of evaluation, no signs of distress. Physical Exam: General - Alert and oriented, no apparent distress Abdomen - Soft, appropriately tender to palpation, non-distended, fundus firm at umbilicus Extremities - no edema, negative Ziyad's bilaterally Assessment: PPD 1 s/p NVD Recovering well, hemodynamically stable Plan: Routine care. Encourage breast feeding. Encourage ambulation. Ferrous sulfate supplementation. Plan for discharge today. Vitals - Labs Vital Signs - I&O Vital Signs Date Time Temp Pulse Resp B/P (MAP) Pulse Ox O2 Delivery O2 Flow Rate FiO2 06/05/22 05:10 36.2 76 18 109/57 (74) 99 Room Air 06/05/22 01:50 36.8 67 18 103/59 (74) 98 Room Air 06/04/22 21:13 36.5 81 18 116/60 (78) 06/04/22 21:02 91 18 113/58 (76) 06/04/22 20:47 80 18 125/65 (85) 06/04/22 20:32 103 18 112/74 (87) 06/04/22 20:17 88 18 131/81 (98) 06/04/22 20:02 83 18 123/70 (87) 06/04/22 19:47 83 18 120/78 (92) 06/04/22 19:32 73 18 117/80 (92) 06/04/22 19:17 86 18 113/74 (87) 06/04/22 19:02 79 18 106/67 (80) 06/04/22 18:50 75 18 106/59 (75) 06/04/22 18:35 100 18 108/62 (77) 06/04/22 18:20 77 18 107/67 (80) 06/04/22 18:05 77 18 105/63 (77) 06/04/22 17:50 78 18 108/65 (79) 06/04/22 17:35 73 18 105/65 (78) 06/04/22 17:20 36.5 81 18 106/61 (76) 06/04/22 17:05 81 18 91/59 (70) 06/04/22 16:50 73 18 91/56 (68) 06/04/22 16:35 71 18 92/51 (65) 06/04/22 15:50 71 18 122/59 (80) 06/04/22 15:35 65 18 107/58 (74) 06/04/22 15:20 85 18 122/60 (80) 99 06/04/22 15:05 97 18 106/64 (78) 98 06/04/22 14:48 93 18 110/67 (81) 99 06/04/22 14:33 36.3 77 18 108/62 (77) 99 06/04/22 14:29 85 18 118/67 (84) 99 06/04/22 14:23 82 18 118/61 (80) 99 06/04/22 14:10 72 18 122/69 (86) 98 06/04/22 14:07 36.4 88 18 125/73 (90) 97 06/04/22 14:01 82 18 122/68 (86) 98 06/04/22 13:58 76 18 117/72 (87) 99 06/04/22 13:55 71 18 122/75 (91) 99 06/04/22 13:50 73 18 126/82 (97) 100 06/04/22 13:35 75 18 109/69 (82) 06/04/22 13:20 74 18 104/57 (73) 06/04/22 13:00 76 18 116/78 (91) 06/04/22 12:45 74 18 114/63 (80) 06/04/22 12:30 67 18 108/72 (84) 06/04/22 12:15 69 18 100/66 (77) 06/04/22 12:00 36.3 68 18 99/66 (77) 06/04/22 11:45 72 18 106/64 (78) 06/04/22 11:00 65 18 110/68 (82) 06/04/22 10:45 82 18 108/66 (80) 06/04/22 10:30 65 18 120/73 (89) 06/04/22 10:15 80 18 104/70 (81) 06/04/22 10:00 82 18 109/64 (79) 06/04/22 09:45 73 18 106/74 (85) 06/04/22 09:30 81 18 102/71 (81) 06/04/22 09:15 83 18 104/72 (83) 06/04/22 09:00 75 18 108/72 (84) 06/04/22 08:45 36.7 80 18 105/73 (84) 06/04/22 07:03 36.8 83 18 99 Room Air I & O 06/05/22 07:00 Intake Total 2000 ml Balance 2000 ml Labs Laboratory Tests 06/05/22 05:13: White Blood Count 13.0H, Red Blood Count 3.60L, Hemoglobin 10.8L, Hematocrit 31L , Mean Corpuscular Volume 87, Mean Corpuscular Hemoglobin 30, Mean Corpuscular Hemoglobin Concent 34, Red Cell Distribution Width 12.8, Platelet Count 211, Mean Platelet Volume 10.0, Immature Granulocyte % (Auto) 1, Neutrophils (%) (Auto) 69, Lymphocytes (%) (Auto) 24, Monocytes (%) (Auto) 5, Eosinophils (%) (Auto) 1, Basophils (%) (Auto) 0, Neutrophils # (Auto) 9.0H, Lymphocytes # (Auto) 3.1, Monocytes # (Auto) 0.7, Eosinophils # (Auto) 0.1, Basophils # (Auto) 0.0, Immature Granulocyte # (Auto) 0.1 SADAF GLASGOW DO 06/05/22 0727: Note Note Verification and Attestation of Medical Student E/M Service A medical student performed and documented this service in my presence. I reviewed and verified all information documented by the medical student and made modifications to such information, when appropriate. I personally performed the physical exam and medical decision making. Sadaf Glasgow Jun 05, 2022,07:27 SRAVAN REYES Jun 05, 2022 06:53 SADAF GLASGOW DO Jun 05, 2022 07:27
[2022-06-05 08:30] VITALS: BP 111/70
[2022-06-05] MEDS: DOCUSATE SODIUM 100 MG (COLACE) CAP PO SCH ×2 (08:34→19:59)
[2022-06-05] MEDS ORDERED: FERROUS SULF 325 MG (IRON) TAB PO SCH (09:00)
[2022-06-05 12:35] VITALS: BP 110/68
--- NOTE | 2022-06-05 14:39 | Anesthesia-Regional Post-Op ---
Regional Patient Condition Mental Status: Alert, Oriented x3 Circulation: Same as Pre-Op Headache: Absent Sensation: Full Recovery Motor Block: Absent Post Op Complications Complications None Follow Up Care/Instructions Patient Instructions None needed. Anesthesia/Patient Condition Patient is doing well, no complaints, stable vital signs, no apparent adverse anesthesia problems. No complications reported per nursing. GIOVANNA TAYLOR CRNA Jun 05, 2022 14:38
[2022-06-05 17:15] VITALS: BP 107/70
[2022-06-05] MEDS ORDERED: ACHD5005 PO (17:50)
[2022-06-05] MEDS ORDERED: DOCU100C37 PO (17:50)
[2022-06-05] MEDS ORDERED: IBUP-844 PO (17:50)
--- NOTE | 2022-06-05 17:51 | Discharge Inst-Women's Service ---
Discharge Inst-Women's Serv Depart Medication/Instructions New, Converted or Re-Newed RX: Transmitted to Pharmacy Final Diagnosis PPD 1 NVD Problems Reviewed?: Yes Consults/Follow Up Orders/Referrals Dr. Glasgow in 6 weeks Activity Activity: Activity as Tolerated Driving Instructions: No Driving for 1 Week NO SMOKING: NO SMOKING Nothing Inside Vagina: No Douching, No [place], No Tampons Diet Discharge Diet: No Restrictions Symptoms to Report to : Bleeding Excessive, Pain Increased, Fever Over 101 Degrees F, Vaginal Bleeding Increase, Questions/Concerns For Any Problems or Questions: Contact Your Physician SADAF GLASGOW DO Jun 05, 2022 17:51
[2022-06-05 20:00] VITALS: BP 114/94
[2022-06-05] MEDS: WITCH HAZEL(TUCKS) 40 EA JAR TOP PRN (20:20)
== END 2022-06-05 21:00 | disposition home or self-care (01) | DRG 807 ==
LOC: LDRP 06:08
PROVIDERS: ADMIT Obstetrics & Gynecology; ATTEND Obstetrics & Gynecology
PROC: 10E0XZZ Delivery of Products of Conception, External Approach (ICD-10-PCS; principal; 2022-06-04)
PROC: 0W8NXZZ Division of Female Perineum, External Approach (ICD-10-PCS; 2022-06-04)
PROC: 0HQ9XZZ Repair Perineum Skin, External Approach (ICD-10-PCS; 2022-06-04)
PROC: 10907ZC Drainage of Amniotic Fluid, Therapeutic from Products of Conception, Via Natural or Artificial Opening (ICD-10-PCS; 2022-06-04)
DX: O48.0 Post-term pregnancy (principal); Z37.0 Single live birth; Z3A.40 40 weeks gestation of pregnancy; O69.81X0 Labor and delivery complicated by cord around neck, without compression, not applicable or unspecified; Z28.310 Unvaccinated for COVID-19
CPT/HCPCS: 36415; 85025; 86780; 86850; 86900; 86901